=== PATIENT | male | born 2000 | race Caucasian/White ===

== ENCOUNTER 2020-09-12 22:35 | Emergency (ER) | payer OTHER ==
[~2020-09-12] VITALS: Ht 190.5 cm; Wt 108.9 kg
[~2020-09-12 22:35] MED LIST: PREDNISONE 20 M20 MG PO; PROAIR HFA8.5 GM INH; ZPAK PO
[2020-09-12 23:30] LABS: ABSOLUTE NEUTROPHILS 4.6 thou/uL (1.4-8.2); BASOPHILS 1.3 % (0.0-2.0); EOSINOPHILS 10.9 % (0.0-3.0); HEMATOCRIT 47.8 % (42.0-52.0); HEMOGLOBIN 16.5 gm/dL (14.0-18.0); LYMPHOCYTES 37.9 % (24.0-44.0); MCH 31.3 pg (26.0-34.0); MCHC 34.5 g/dL (28.0-37.0); MCV 90.9 fL (80.0-100.0); MONOCYTES 6.1 % (1.0-8.0); PLATELET COUNT 247 thou/uL (150-400); POLYS 43.8 % (36.0-66.0); RBC 5.26 mil/uL (4.50-6.00); WBC 10.6 thou/uL (4.0-11.0)
[2020-09-12 23:35] LABS: CALCIUM 9.3 mg/dL (8.5-10.1); CREATININE 1.1 mg/dL (0.7-1.3)
[2020-09-12 23:37] LABS: POTASSIUM 4.2 mmol/L (3.5-5.1)
[2020-09-13 01:03] VITALS: BP 120/77
--- NOTE | 2020-09-13 10:19 | EKG ---
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
== END 2020-09-13 01:05 | disposition home or self-care (01) ==
LOC: ER 22:35
PROVIDERS: Emergency Medicine
DX: R61 Generalized hyperhidrosis (principal); Z20.828 Contact with and (suspected) exposure to other viral communicable diseases; Z86.711 Personal history of pulmonary embolism